=== PATIENT | female | born 1980 | race Caucasian/White ===

== ENCOUNTER 2017-08-14 07:29 | Emergency (ER) | payer MEDICAID, OTHER ==
[~2017-08-14] VITALS: Ht 165.1 cm; Wt 104.5 kg
[~2017-08-14 07:29] MED LIST: CHOLPOW XX; FLUO-1 PO; GLUCTAB PO; LOVA20TA PO; NORC10TA2 PO; OMEG100037 PO; PHEN-329 PO; TELM20 PO
[2017-08-14 07:30] VITALS: BP 177/96; PULSE 85; RESP 18; TEMP 97.9; O2SAT 99
[2017-08-14] MEDS ORDERED: FLUO1TAB3 PO (07:52)
[2017-08-14] MEDS ORDERED: METF1000 PO (07:52)
[2017-08-14] MEDS ORDERED: LIDOCAINE HCL 1% 50 ML VIAL INFIL ONE (08:15)
[2017-08-14] MEDS ORDERED: CEPH-460 PO (08:31)
[2017-08-14] MEDS ORDERED: BACT800T5 PO (08:31)
--- NOTE | 2017-08-14 08:32 | PD ---
HPI . Abscess Chief Complaint: Skin Problem Time Seen by Provider: 08:02 Travel History International Travel<30 days: No Contact w/Intl Traveler<30days: No Traveled to known affect area: No History of Present Illness HPI 37-year-old female presents emergency department for evaluation of an abscess on her left upper buttock. Patient states that this is the third day the abscess has been going on and is growing more painful. Patient states she had an abscess like this in the past but it was approximately 20 years ago. Patient denies any chest pain, shortness breath, fever, chills, malaise, diarrhea, nausea, vomiting. Patient's major medical history is diabetes and depression. Patient states her sugar have been good and she takes metformin the diabetes. PFSH Past Medical History Depression: Yes Diabetes: Yes Patient Takes Glucophage: Yes Diminished Hearing: No Respiratory: Yes (HX OF P[place]EMON[place]) Tetanus Vaccination: Unknown ?: Not Tubal Ligation: Yes Past Surgical History Abdominal Surgery: Yes (TUBAL LIGATION) Gynecologic Surgery: Yes (TUBAL LIGATION) Social History Alcohol Use: Yes (COUPLE DRINKS EVERY 2-3 MONTHS) Tobacco Use: No Substance Use: No Allergies-Medications (Allergen,Severity, Reaction): Coded Allergies: No Known Allergies (Verified Adverse Reaction, Unknown, 08/14/17) Reported Meds & Prescriptions Reported Meds & Active Scripts Active Keflex (Cephalexin) 500 Mg Cap 500 Mg PO Q6H 10 Days Bactrim DS (Sulfamethoxazole-Trimethoprim) 800-160 Mg Tab 1 Tab PO BID 10 Days Reported Fluoxetine (Fluoxetine HCl) 20 Mg Tab 20 Mg PO DAILY Metformin (Metformin HCl) 1,000 Mg Tab 1,000 Mg PO BIDPC Review of Systems Except as stated in HPI: all other systems reviewed are Neg General / Constitutional: No: Fever, Chills Skin: Positive Other (abscess left buttock) Physical Exam Narrative GENERAL: Well-nourished, well-developed 37 year old female patient in no acute distress. Nontoxic appearing. SKIN: Focused skin assessment warm/dry. 2 cm area of induration with mild erythema noted to the left upper buttocks. HEAD: Normocephalic. Atraumatic. EYES: No scleral icterus. No injection or drainage. NECK: Supple, trachea midline. No JVD or lymphadenopathy. CARDIOVASCULAR: Regular rate and rhythm without murmurs, gallops, or rubs. RESPIRATORY: Breath sounds equal bilaterally. No accessory muscle use. GASTROINTESTINAL: Abdomen soft, non-tender, nondistended. MUSCULOSKELETAL: No cyanosis, or edema. BACK: Nontender without obvious deformity. No CVA tenderness. Data Data Last Documented VS Vital Signs Date Time Temp Pulse Resp B/P (MAP) Pulse Ox O2 Delivery O2 Flow Rate FiO2 08/14/17 08:40 08/14/17 07:30 97.9 85 18 99 Room Air Orders Orders Lidocaine 1% Inj (50 Ml) (Xylocaine 1% I (08/14/17 08:15) Wound Culture And Gram Stain (08/14/17 08:32) Ed Discharge Order (08/14/17 08:32) [facility] Medical Decision Making Medical Screen Exam Complete: Yes Emergency Medical Condition: Yes Differential Diagnosis Differential diagnoses include but not limited to cellulitis, abscess, wound Narrative Course 37-year-old female presents emergency department for evaluation of an abscess to her left upper buttock 3 days. Patient denies any fever or chills. I&D was performed. Please see my procedural narrative. The area appeared to be fluctuant but during the procedure it was noted that the induration was extensive. Wound culture was obtained but scant amount of purulent drainage was noted. Patient discharged home with prescription for Bactrim and Keflex and instructions to use warm moist compress to help the area come to a head. No packing was able to be performed due to the level of induration of the surrounding tissue. Patient discharged home with instructions to return to the emergency room Department with any worsening condition. Procedures Procedure Narrative INCISION AND DRAINAGE OF ABSCESS: The area was prepped and was sterilely draped. A subcutaneous wheal of 1 % Xylocaine with a total number 2 mL was used to anesthetize the area properly. A number 11 scalpel was used to make a 0.5 -cm incision across the area of the abscess. The abscess was drained, complex loculations were broken down, and irrigated with normal saline but this was limited due to the amount of induration of the surrounding tissue. Cultures were obtained. Sterile dressing applied. Patient advised to keep the area clean and dry. Diagnosis Primary Impression: Abscess Referrals: Primary Care Physician Patient Instructions: Abscess (ED), General Instructions Additional Instructions: Please return to emergency department if your symptoms return or worsen. Follow up with your primary care provider. Take medications as prescribed. Bactrim is free at [facility]. Sitz bath may help. Keep area clean and dry. May take ibuprofen or Tylenol as needed for pain or fever. Med/Other Pt SpecificInfo: Prescription(s) given Scripts Cephalexin (Keflex) 500 Mg Cap 500 MG PO Q6H for Infection for 10 Days, #40 CAP 0 Refills Prov: Marva Metcalf 08/14/17 Sulfamethoxazole-Trimethoprim (Bactrim DS) 800-160 Mg Tab 1 TAB PO BID for Infection for 10 Days, #20 TAB 0 Refills Prov: Marva Metcalf 08/14/17 Disposition: 01 DISCHARGE HOME Condition: Stable Marva Metcalf Aug 14, 2017 08:32
== END 2017-08-14 08:47 | disposition home or self-care (01) ==
LOC: NEPD 07:29
DX: L02.31 Cutaneous abscess of buttock (principal); E11.9 Type 2 diabetes mellitus without complications; F32.9 Major depressive disorder, single episode, unspecified; Z79.899 Other long term (current) drug therapy
CPT/HCPCS: 10060; 87070